=== PATIENT | female | born 1995 | race African-American/Black ===

== ENCOUNTER 2023-07-16 18:34 | Outpatient (CLI) | payer OTHER ==
--- NOTE | 2023-07-17 11:37 | Ultrasound Report ---
PROCEDURE: OB Detailed Eval INDICATIONS: SUPERVISION OF OUTSIDE/PRIOR DATING DATA: Last menstrual period (LMP): 03/15/2023. LMP-based estimated date of delivery ([place]): 12/20/2023. First dating scan (date and location): 06/05/2023 (images not available). Estimated date of delivery ([place]) from first dating scan: 12/17/2023. TECHNIQUE: Real-time scanning was performed of the fetus, with image documentation and biometric measurements. COMPARISON: None. FINDINGS: General: A single living intrauterine gestation is present. Presentation: Breech Placenta: Placental position is anterior, without previa. Amniotic fluid index: 16 cm, within normal limits for gestational age. heart rate: 169 beats per minute. Maternal cervical canal: 3.7 cm long; normal length is 2.5 cm or more. biometrics: Biparietal diameter: 3.95 cm, 18 weeks, 70th percentile Head circumference: 15 cm, 18 weeks and 1 day, 68th percentile Abdominal circumference: 12.2 cm, 17 weeks and 6 days, 59th percentile Femur length: 2.8 cm, 18 weeks and 4 days, 81st percentile Estimated gestational age: 17 weeks and 4 days Composite gestational age from present scan: 18 weeks and 2 days Estimated weight and percentile: 229 g, 83rd percentile Measurement variability in biometric dating: +/- 10 days from 12-20 weeks gestation, +/- 2 weeks from 20-30 weeks gestation, +/- 3 weeks at 30 weeks gestation or later. Anatomic survey: Neuro: Ventricles are normal at less than 10 mm. Cisterna magna is normal at 3-11 mm. Cerebellum i s normal in size and morphology. Nuchal skin fold: Normal at less than 6 mm between 14 and 20 weeks gestational age. Face: Nose and lips, facial profile are normal. Spine: No evidence for spina bifida. Heart: 4-chambered heart is present, with normal ventricular outflow tracts. Echogenic focus is se en on the LVOT images. Diaphragm: Diaphragm is intact. Stomach: Left-sided stomach is present. Kidneys: No hydronephrosis. Normal is less than 5 mm in 2nd trimester, less than 7 mm in 3rd trimester. Cord: 3 vessel cord has orthotopic insertion. Bladder: Normal in size. Extremities: All 4 extremities are visualized. IMPRESSION: Living intrauterine gestation at 17 weeks and 4 days. Biometry today at the upper limit of normal at the 83rd percentile. Normal GERARD. Incidentally noted, nonspecific echogenic focus seen on LVOT images. No significant abnormalities seen on routine anatomic survey, however please note that any subtle abn ormalities can rarely be occult prior to 20 weeks of gestational age. Noting the above, consider follow up if clinically indicated depending on clinical risk factors. Reviewed by: Jhonatan Asencio MD on 07/17/2023 11:36 AM PST Approved by: Jhonatan Asenico MD on 07/17/2023 11:36 AM PST Station ID: [id number]
== END 2023-07-16 18:35 | disposition home or self-care (01) ==
LOC: DI 18:34
PROVIDERS: ATTEND Nurse Practitioner Obstetrics & Gynecology
DX: Z34.02 Encounter for supervision of normal first pregnancy, second trimester (principal)

== ENCOUNTER 2023-10-30 21:40 | Outpatient (CLI) | payer MEDICAID ==
--- NOTE | 2023-10-31 12:22 | Ultrasound Report ---
PROCEDURE: OB Follow up INDICATIONS: ABNORMAL ULTRASONIC FINDING OUTSIDE/PRIOR DATING DATA: Last menstrual period (LMP): 03/15/2023. LMP-based estimated date of delivery ([place]): 12/20/2023. First dating scan (date and location): 06/05/2023 (images not available). Estimated date of delivery ([place]) from first dating scan: 12/17/2023. Last menstrual period (LMP): 03/15/2023. Working EASTON: 12/20/2023. TECHNIQUE: Real-time scanning was performed of the fetus, with image documentation and biometric measurements. Endovaginal scanning: Not performed. COMPARISON: OB ultrasound, 07/16/2023. FINDINGS: General: A single living intrauterine gestation is present. Presentation: Vertex Placenta: Placental position is anterior, without previa. Amniotic fluid index: 12.6 cm; the largest pocket measuring 5.0 cm. heart rate: 145 beats per minute. Maternal cervical canal: Not visualized. biometrics: Not performed. Estimated gestational age from clinical datin weeks 5 days. Measurement variability in biometric dating: +/- 10 days from 12-20 weeks gestation, +/- 2 weeks from 20-30 weeks gestation, +/- 3 weeks at 30 weeks gestation or more. Other: There is an echogenic focus in the left ventricular outflow tract measures 6.2 mm, as seen on the last exam. IMPRESSION: 1. A single living IUP redemonstrated. 2. Persistent intracardiac echogenic focus. 3. GERARD 12.6 cm. Reviewed by: Mynor Lopez MD on 10/31/2023 12:20 PM PDT Approved by: Mynor Lopez MD on 10/31/2023 12:20 PM PDT Station ID: [id number]
== END 2023-10-30 21:41 | disposition home or self-care (01) ==
LOC: DI 21:40
PROVIDERS: ATTEND Nurse Practitioner Obstetrics & Gynecology
DX: O28.3 Abnormal ultrasonic finding on antenatal screening of mother (principal); Z3A.32 32 weeks gestation of pregnancy

== ENCOUNTER 2023-12-09 22:59 | Inpatient (IN) | payer MEDICAID ==
[2023-12-09] MEDS ORDERED: miSOPROStoL 200 MCG TABLET PR PRN (23:40)
[2023-12-09] MEDS ORDERED: CARBOPROST TROMETHAMINE 250 MCG/ML VIAL IM PRN (23:40)
[2023-12-09] MEDS ORDERED: hydrALAZINE INJ 20 MG/ML VIAL IVP PRN ×2 (23:40)
[2023-12-09] MEDS ORDERED: LABETALOL 20 MG/4 ML SYRINGE IVP PRN ×3 (23:40)
[2023-12-09] MEDS ORDERED: TERBUTALINE 1 MG/ML VIAL SUBQ PRN (23:40)
[2023-12-09] MEDS ORDERED: fentaNYL 100 MCG/2 ML VIAL IVP PRN (23:40)
[2023-12-09] MEDS ORDERED: SODIUM CHLORIDE FLUSH 0.9% 10 ML SYRINGE IVP PRN (23:40)
[2023-12-09] MEDS ORDERED: LACTATED RINGERS 1,000 ML IV PRN (23:40)
[2023-12-09] MEDS ORDERED: miSOPROStoL 200 MCG TABLET BC PRN (23:40)
[2023-12-09] MEDS ORDERED: lidocaine 1% 20 ML MDV ID PRN (23:40)
[2023-12-09] MEDS ORDERED: NIFEdipine 10 MG CAPSULE PO PRN (23:40)
[2023-12-09] MEDS ORDERED: OXYTOCIN/SODIUM CHLORIDE 500 ML IV PRN (23:40)
[2023-12-09] MEDS ORDERED: TRANEXAMIC ACID IN NACL 1,000 MG/100 ML BAG IV PRN (23:40)
[2023-12-09] MEDS ORDERED: METHYLERGONOVINE 0.2 MG/ML VIAL IM PRN (23:40)
[2023-12-09] MEDS ORDERED: SODIUM CHLORIDE FLUSH 0.9% 10 ML SYRINGE IVP SCH (23:45)
--- NOTE | 2023-12-09 23:49 | HISTORY & PHYSICAL EXAMINATION ---
Admit History - Visit Reason Visit Reason: Contractions - : 1 Parity: 0 Premature: 0 Ectopic: 0 : 0 Care: positive: [facility] Risk/History: positive: None Complications This : positive: None Smoking Status: Never smoker - Mother's Labs Mother's Blood Type: positive: O Mother's RH: positive: Positive GBS: positive: Group B Step Negative Rubella Status: positive: Immune - HPI Vital Signs Temperature 36.2 C L 12/09/23 23:24 Heart Rate 98 12/09/23 23:24 Respiratory Rate 18 12/09/23 23:24 Blood Pressure 130/75 12/09/23 23:24 Temperature 36.2 C L 12/09/23 23:24 Heart Rate 98 12/09/23 23:24 Respiratory Rate 18 12/09/23 23:24 Blood Pressure 130/75 12/09/23 23:24 O2 Saturation If not protocol: Oxygen Flow, liters/minute - NST Procedure FHR baseline 150s, moderate variability, + accels, no decels Contractions palpate strong every 2-4 minutes with soft resting tone Meds/Allgy - Home Medications Home Medications: Ambulatory Orders Medication Instructions Recorded Confirmed No Known Home Medications 03/09/22 03/09/22 - Allergies Allergies/Adverse Reactions: Allergies Allergy/AdvReac Type Severity Reaction Status Date / Time No Known Drug Allergies Allergy Verified 03/09/22 10:00 Review of Systems - Constitutional Constitutional: denies: Fatigue, Fever, Chills, Malaise - Eyes Eyes: denies: Blurred vision, Spots in vision, Dipolpia - Cardiovascular Cariovascular: denies: Palpitations, Chest pain, Edema - Respiratory Respiratory: denies: Cough, Wheezing, SOB at rest - Gastrointestinal Gastrointestinal: denies: Constipation, Diarrhea, Nausea, Vomiting - Genitourinary Genitourinary: denies: Dysuria - Integumentary Integumentary: denies: Rash, Pruritis - Psychiatric Psychiatric: denies: Depression, Anxiety - Hematologic/Lymphatic Hematologic/Lymphatic: reports: Anemia - All Other Systems All Other Systems: reports: Reviewed and negative Physical - Abdominal Exam Vital Signs: Temp Pulse Resp BP Pulse Ox O2 Flow Rate 36.2 C L 98 18 130/75 12/09/23 23:24 12/09/23 23:24 12/09/23 23:24 12/09/23 23:24 Contraction Frequency (min/apart): 2-4 Contraction Intensity: positive: Strong Uterine Resting Tone: positive: Soft - Monitoring Heart Rate Baseline: 150 Strip Review: positive: Category I - Presentation Presentation: positive: Vertex - Vaginal Exam Membranes: positive: Membranes intact Dilation (in cm): 5 Effacement (%): 80 Station: positive: -1 Cervical Position: positive: Anterior - Speculum Exam Speculum Exam Performed: positive: No Plan for Labor - Plan For Labor I expect patient to be DC'd or transferred within 96 hours.: Yes Plan for Labor: HPI: This 28yo @ 38.3wks gestation by LMP c/w 11.5wk U/S presents to [facility] with c/o contractions that have increased in both frequency and intensity since this morning. Upon arrival she is found to contract every 2-4 minutes. Contractions palpate strong with soft resting tone. SVE 5/80/-1 and vertex with intact membranes. FHR baseline 150s, moderate variability, + accels, no decels. She has been a patient of [facility] for the duration of her which has remained uncomplicated with the exception of mild anemia for which she initiated FeSO4 by mouth at 28wks gestation. In addition her anatomic survey noted an echogenic focus in the LVOT which was also seen on 32 week follow up ultrasound. She has received consistent care for the duration of her . She is supported by her partner Cayetano today. Dating criteria: LMP: 03/15/2023 [place] by LMP: 12/20/2023 Initial U/S @ 11.5wks c/w LMP dating Serial exams - agree OB Hx: G1: Current Medical Hx: No significant Surgical Hx: None Social Hx: Monogamous with male partner. Stopped drinking alcohol due to . Denies current use of tobacco, marijuana or other recreational drugs. Former tobacco user. Reports that she is safe in current relationship. Family Hx: Denies family history of congenital anomalies, Cystic Fibrosis or chromosomal abnormalities. Maternal aunt, cancer that caused . Allergies: NKDA Medications: PNV, FeSO4 course: O positive, antibody negative Rubella immune, varicella NON-IMMUNE HIV non-reactive, RPR non-reactive Hep B neg, Hep C neg GC/CT neg Initial U/S @ 11.5wks c/w LMP dating Genetic screening - declined FAS WNL. EFW 83%tile. GERARD WNL. Incidentally noted, nonspecific echogenic focus seen on LVOT images. Glucola 88 Tdap - declined Influenza - declined Covid vaccine - declined 32 wk f/u ultrasound IMPRESSION: 1. A single living IUP redemonstrated. 2. Persistent intracardiac echogenic focus. 3. GERARD 12.6 cm. GBS neg Physical Exam: Normocephalic, atraumatic Heart RRR w/o M/G/R Lungs CTAB Abdomen gravid, soft, nontender. EFW 3200g FHR baseline 150s, moderate variability, + accels, no decels Contractions palpate strong every 2-4 minutes with soft resting tone SVE 5/80/-1 and vertex. Intact membranes Bilateral LE's no edema. Mood is good. Assessment: 28yo @ 38.3wks gestation by LMP c/w 11.5wk U/S Active labor FHR Category I GBS negative Plan: Admit to [facility] for expectant management. Intermittent heart rate auscultation. Jacuzzi PRN. Nitrous oxide PRN. Epidural per maternal request. Anticipate .
[2023-12-10 00:18] LABS: BASOPHILS % (AUTO) 0.1 %; HCT - HEMATOCRIT 39.2 % (37.0-47.0); HGB - HEMOGLOBIN 11.8 g/dL (12.0-16.0); LYMPHOCYTES # (AUTO) 1.4 10^3/uL (1.5-3.5); LYMPHOCYTES % (AUTO) 14.2 %; MEAN CORPUSCULAR HEMOGLOBIN 28.6 pg (27.0-31.0); MEAN CORPUSCULAR HGB CONC 30.1 g/dL (32.0-36.0); MEAN CORPUSCULAR VOLUME 94.9 fL (81.0-99.0); MEAN PLATELET VOLUME 9.7 fL (7.9-10.8); MONOCYTES # (AUTO) 0.4 10^3/uL (0.0-1.0); MONOCYTES % (AUTO) 3.8 %; NEUTROPHILS # (AUTO) 7.9 10^3/uL (1.5-6.6); NEUTROPHILS % (AUTO) 81.3 %; NRBC ABSOLUTE COUNT (AUTO) 0.02 x10^3/uL; NUCLEATED RED BLOOD CELLS AUTO 0.2 /100WBC; PLT - PLATELET COUNT 321 10^3/uL (130-450); RED BLOOD COUNT 4.13 10^6/uL (4.20-5.40); RED CELL DISTRIBUTION WIDTH 14.3 % (12.0-15.0); WHITE BLOOD COUNT 9.7 x10^3/uL (4.8-10.8)
[2023-12-10] MEDS: OXYTOCIN 10 UNIT/ML VIAL IM PRN (01:57)
--- NOTE | 2023-12-10 02:16 | DELIVERY NOTE ---
Delivery Note - Labor Labor: positive: Spontaneous - Delivery Method Delivery Method: positive: Spontaneous vaginal delivery - Presentation Presentation: positive: Vertex, SIMON - left occiput anterior - Nuchal Cord Nuchal Cord: positive: Present - Amniotic Fluid Description Amniotic Fluid Description: positive: Clear - Episiotomy Type Episiotomy Type: positive: None - Laceration Laceration: positive: 1st degree - Delivery Outcome Delivery Outcome: positive: Livebirth - : positive: Bulb syringe, Stimulated, Warmed, Diamond used [place] sex: positive: Female - Cord Cord: positive: 3 vessels - Placenta Placenta: positive: Intact - Estimated Blood Loss Estimated Blood Loss (in cc): 150 - Post Delivery Events Post Delivery Events: positive: No post delivery events - Delivery Comments (Free Text/Narrative) Delivery Comments (Free Text/Narrative): This 28-year-old, G 1P0. @ 38+3 gestation by LMP confirmed by 1st trimester ultrasound @ 23:20 lasst evening in active labor. Cervix was 5/80/-1 and Vertex. GBS negative. Baseline in a category 150's, category 1 tracing. Normal labor course. AROM occurred @ 01:20, noted to be a small amount of clear fluid. Progressed to complete with onset of pushing @ 0120. : Normal spontaneous vaginal delivery of a viable female on 12/10/2023 @ 0133 Nuchal x1,delivered through. The was placed on maternal abdomen, stimulated, dried and placed skin to skin. Apgars 8 1 min, and 8 5 minutes. Pitocin administered via IM 10U for hemostasis. The umbilical cord was allowed to stop pulsating at which time it was doubly clamped by delivering provider and cut by FOB. 3VC. Cord blood was obtained. Fundal massage and gently cord traction applied for active management of the third stage, placenta delivered spontaneously and intact @01:44 . EBL 150. Fourth stage: Uterine fundus firm and there is no excessive bleeding. The perineum, vagina and cervix were inspected and found to be intact. Vaginal and rectal examination following the repair was done. Tissues well approximated. Skin to skin initiated. Family bonding well. Both mother and baby are in stable condition. Bessy Bolanos, Student Nurse [employer].
[2023-12-10] MEDS: IBUPROFEN 600 MG TABLET PO SCH (02:59)
[2023-12-10] MEDS ORDERED: LACTATED RINGERS 1,000 ML IV SCH (03:00)
[2023-12-10] MEDS: ACETAMINOPHEN 500 MG TABLET PO SCH (08:52)
[2023-12-10] MEDS: WITCH HAZEL/GLYCERIN 1 PAD TOP PRN (09:32)
[2023-12-10 12:19] VITALS: O2SAT 100
--- NOTE | 2023-12-10 12:38 | PHARMACY PROGRESS NOTE ---
- Best Possible Medication History Admit Date and Time: 12/09/23 0839 Processed by: Pharmacy Medications reviewed in ED?: No Medication History completed: Yes Patient Interview: Pt unable to participate Secondary Source(s): Physician records, Insurance records As the person ultimately responsible for medication therapy, providers are able to order a medication from an existing home medication list in [facility] via the "Reconcile Routine" prior to Confirmation of that medication by network and threat support specialist. Such practice is discouraged except when the physician, in their clinical judgment, deems that a medical need exists for a medication without regard to previous use.
--- NOTE | 2023-12-11 08:02 | DISCHARGE SUMMARY ---
Discharge Summary Admit Date: 12/09/23 Discharge Date: 12/11/23 Discharging Provider: BRIANNA Bloom/ SABRA Bolanos Code Status: Attempt Resuscitation Condition at Discharge: Good Discharge Disposition: 01 Home, Self Care - DIAGNOSES Admission Diagnoses: 28 yo @ 38.3 weeks gestation in active labor Discharge Diagnoses with Status of Each Condition: S/P spontaneous vaginal delivery viable female infant - HOSPITAL COURSE Hospital Course: Date of Admission 12/09/2023 Date of Discharge 12/11/2023 Diagnosis on admission: 1. 28 yo @ 38.3wks gestation by LMP c/w 11.5 week u/s 2. Active Labor 3. FHR Category I 4. GBS negative Diagnosis on Discharge 1. 28 yo pp #2 2. Normal course 3. 3. Mood good Brief History: She is a patient of [facility] who presented on 12/09/2023 with complaints of contractions. She was found to be valerio regularily /intact and quickly progressed from to complete. Labor progressed naturally without medication pain management. She spontaneously delivered a viable female infant apgars 8 and 8 at 1 and 5 minutes respectively. EBL 150 ml. intact perineum. She has been doing well in her course. She is ambulating and tolerating a regular diet. She is urinating without difficulty and her lochia is normal. Her pain is well controlled without narcotic management. She will be discharged to home today on day 1 with prescriptions for IBU and colace. She intends to follow up with [facility] in 1 week for telehealth. She has been given precautions to call if she has any worsening fevers, chills, abdominal pain, increasing bleeding, or foul smelling vaginal lochia. - ALLERGIES Allergies/Adverse Reactions: Allergies Allergy/AdvReac Type Severity Reaction Status Date / Time No Known Drug Allergies Allergy Verified 03/09/22 10:00 - MEDICATIONS Home Medications: Ambulatory Orders Medication Instructions Recorded Confirmed Ferrous Sulfate [Feosol] 325 mg PO BID 12/10/23 12/10/23 Pnv No.95/Ferrous Fum/Folic AC 1 tab PO DAILY 12/10/23 12/10/23 [ Tablet] - LABS Result Diagrams: 12/10/23 00:05
[2023-12-11 08:05] VITALS: BP 121/68
--- NOTE | 2023-12-11 09:05 | Discharge Plan ---
Discharge Plan Problem Reviewed?: Yes Disposition: Home, Self Care Condition: Good Diet: Regular Activity Restrictions: No Restrictions Weight Bearing: Full Weight Instruction Topics: Vaginal After, , Nutrition , Self Care No Smoking: If you smoke, Please STOP! Call for help. Follow-up with: Gloria Bloom CNM, ARNP [Provider Admit Priv/Credential] - 1 Week
[2023-12-11] MEDS: VARICELLA VACCINE LIVE/PF 1,350 UNIT/0.5 ML VIAL SUBQ ONE (09:48)
== END 2023-12-11 12:30 | disposition home or self-care (01) | DRG 807 ==
LOC: WFO 22:59 → FBP 23:01 → WFO 23:51
PROVIDERS: ADMIT Nurse Practitioner Obstetrics & Gynecology; ATTEND Nurse Practitioner Obstetrics & Gynecology
PROC: 10E0XZZ Delivery of Products of Conception, External Approach (ICD-10-PCS; principal; 2023-12-10)
PROC: 0HQ9XZZ Repair Perineum Skin, External Approach (ICD-10-PCS; 2023-12-10)
DX: O99.02 Anemia complicating childbirth (principal); Z37.0 Single live birth; Z3A.38 38 weeks gestation of pregnancy; O70.0 First degree perineal laceration during delivery
CPT/HCPCS: 36415; 59025; 59409; 84443; 85025; 86850; 86900; 86901; 90716; 99213; A9270; J7120